=== PATIENT | female | born 1990 ===

== ENCOUNTER 2025-02-27 01:55 | Emergency (ER) | payer OTHER ==
[~2025-02-27] VITALS: Ht 165.1 cm; Wt 96.0 kg
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
[2025-02-27] MEDS ORDERED: ACET500T58 PO (03:18)
[2025-02-27] MEDS ORDERED: CYCL-837 PO (03:18)
--- NOTE | 2025-02-27 03:36 | DVH ---
INDICATION: thoracic back pain TECHNIQUE: 2 views of the thoracic spine were obtained. COMPARISON: None FINDINGS: No evidence of acute fracture or compression deformity. Normal kyphotic curvature without listhesis. No significant degenerative change. Unremarkable imaged chest and upper abdomen. IMPRESSION: 1. No acute finding of the thoracic spine.
--- NOTE | 2025-02-27 03:52 | DVH ---
EXAM: CT CERVICAL WITHOUT CONTRAST HISTORY: neck pain COMPARISON: None CTDIvol 23 mGy, DLP 554 mGy*cm. TECHNIQUE: Multiple axial CT images of the spine were obtained using bone algorithm. Axial and carrillo l reformatting was done. Bone and soft tissue windows were reviewed. FINDINGS: No evidence of vertebral fracture or compression deformity. Mild reversal of normal lordotic curvatur e. Minimal anterolisthesis of C2-C3 and C3-C4, which may be positional or due to laxity. No signific ant degenerative change. Normal alignment of the craniocervical junction. No acute finding of the i seema intracranial contents, neck soft tissues, or upper chest. IMPRESSION: 1. No acute cervical fracture.
[2025-02-27 04:50] VITALS: BP 134/72; PULSE 85; RESP 17; TEMP 98.5; O2SAT 98
== END 2025-02-27 04:53 | disposition home or self-care (01) ==
LOC: ER 01:55
DX: S16.1XXA Strain of muscle, fascia and tendon at neck level, initial encounter (principal); S29.012A Strain of muscle and tendon of back wall of thorax, initial encounter; Z79.899 Other long term (current) drug therapy; V89.2XXA Person injured in unspecified motor-vehicle accident, traffic, initial encounter; Y93.89 Activity, other specified; Y92.410 Unspecified street and highway as the place of occurrence of the external cause; Y99.8 Other external cause status
CPT/HCPCS: 72070; 72125